=== PATIENT | female | born 1955 | race American Indian/Alaskan Native ===

== ENCOUNTER 2016-10-03 10:57 | Outpatient (CLI) | payer OTHER ==
--- NOTE | 2016-10-03 12:00 | Mammography Report ---
Diagnostic left mammogram and targeted left breast ultrasound. History: Palpable abnormality in the left breast. Comparison is made to the previous mammogram on January 14, 2016. Findings: The breasts have a fibrofatty appearance with no evidence of focal mass or architectural distortion. No suspicious calcifications are seen. Targeted ultrasound at the site of palpable abnormality reveals no evidence of cystic or solid mass. Impression: No suspicious findings. BI-RADS code: 1. Recommendation: Routine screening schedule. The patient will be due for a bilateral mammogram in 6 months.
--- NOTE | 2016-10-04 09:06 | Ultrasound Report ---
Diagnostic left mammogram and targeted left breast ultrasound. History: Palpable abnormality in the left breast. Comparison is made to the previous mammogram on January 14, 2016. Findings: The breasts have a fibrofatty appearance with no evidence of focal mass or architectural distortion. No suspicious calcifications are seen. Targeted ultrasound at the site of palpable abnormality reveals no evidence of cystic or solid mass. Impression: No suspicious findings. BI-RADS code: 1. Recommendation: Routine screening schedule. The patient will be due for a bilateral mammogram in 6 months. Transcribed By: MRP Dictated By: ZOLTAN ESPINOZA MD Electronically Authenticated By: ZOLTAN ESPINOZA MD Signed Date/Time: 10/03/16 7980
== END 2016-10-03 10:58 | disposition home or self-care (01) ==
LOC: SPVWC 10:57
PROVIDERS: ATTEND Internal Medicine
DX: N63 Unspecified lump in breast (principal); N64.89 Other specified disorders of breast
CPT/HCPCS: 76642; G0206

== ENCOUNTER 2020-04-23 11:31 | Outpatient (CLI) | payer OTHER ==
--- NOTE | 2020-04-23 15:56 | Mammography Report ---
DIGITAL SCREENING MAMMOGRAM WITH CAD, 04/23/2020 CLINICAL INFORMATION / INDICATION: Routine screening mammography. TECHNIQUE: Digital bilateral 2D mammography was obtained in the craniocaudal and mediolateral obliqu e projections. This examination was interpreted with the benefit of Computer-Aided Detection analysis . COMPARISON: 10/03/2016, 01/14/2016 FINDINGS: Breast Density: The breasts are almost entirely fatty. No dominant mass, suspicious calcifications, or architectural distortion in either breast. IMPRESSION: No mammographic evidence of malignancy. Follow up recommendation: Routine yearly BI-RADS Category 1: Negative. A "normal" or negative report should not discourage follow up or biopsy of a clinically significant f inding. A written summary of these findings will be mailed to the patient. The patient will be entered into a mammography reporting system which will generate a reminder letter for the patient's next appointmen t at the appropriate interval. The [employer] recommends yearly mammograms starting at age 40 and continuing as l shannon as a woman is in good health. Breast MRI is recommended for women with an approximate 20-25% or greater lifetime risk of breast cancer, including women with a strong family history of breast or ova osiel cancer or who have been treated for Hodgkin's disease. Signer Name: Rula Wick MD Signed: 04/23/2020 3:52 PM Workstation Name: [id number]
== END 2020-04-23 11:32 | disposition home or self-care (01) ==
LOC: SPVWC 11:31
PROVIDERS: ATTEND Internal Medicine
DX: Z12.31 Encounter for screening mammogram for malignant neoplasm of breast (principal)
CPT/HCPCS: 77067